=== PATIENT | female | born 2000 | race Asian ===

== ENCOUNTER 2023-10-11 01:20 | Emergency (ER) | payer SELFPAY ==
[~2023-10-11] VITALS: Ht 160 cm; Wt 53.0 kg
[2023-10-11 01:31] VITALS: BP 152/83; PULSE 106; RESP 14; TEMP 98.4; O2SAT 100
[2023-10-11] MEDS ORDERED: ACETAMINOPHEN 325MG TABLET PO ONE (04:30)
[2023-10-11] MEDS ORDERED: TETRACAINE 0.5% OPHTH DROPS 4ML BOTHEYE ONE (04:30)
[2023-10-11] MEDS ORDERED: FLUORESCEIN SODIUM 1MG/STRIP BOTHEYE ONE (04:30)
[2023-10-11] MEDS ORDERED: ACET-2708 MT (05:23)
[2023-10-11] MEDS ORDERED: DIPH25TA62 MT (05:23)
== END 2023-10-11 06:07 | disposition home or self-care (01) ==
LOC: ER 02:00
DX: T26.92XA Corrosion of left eye and adnexa, part unspecified, initial encounter (principal); T26.91XA Corrosion of right eye and adnexa, part unspecified, initial encounter; I10 Essential (primary) hypertension; Y93.89 Activity, other specified; Y92.89 Other specified places as the place of occurrence of the external cause; Y99.8 Other external cause status
CPT/HCPCS: 99283